=== PATIENT | female | born 1990 | race Asian ===

== ENCOUNTER → 2021-06-16 | Outpatient (REF) | LOC: M EMP 07:54 | PROVIDERS: ATTEND Family Medicine | DX: Z11.52 Encounter for screening for COVID-19 (principal) ==

== ENCOUNTER → 2021-06-20 | Outpatient (REF) | LOC: M EMP 10:11 | PROVIDERS: ATTEND Family Medicine | DX: Z20.822 Contact with and (suspected) exposure to COVID-19 (principal) ==

== ENCOUNTER 2021-12-21 15:50 | Emergency (ER) | payer BC ==
[~2021-12-21] VITALS: Ht 160 cm; Wt 67.9 kg
[2021-12-21] MEDS ORDERED: IVIG SQ (16:07)
[2021-12-21] MEDS ORDERED: PROB250C PO (16:08)
[2021-12-21] MEDS ORDERED: D3 +TAB PO (16:08)
[2021-12-21] MEDS ORDERED: VITMTA PO (16:08)
[2021-12-21] MEDS ORDERED: EQL50TAB2 PO (16:08)
[2021-12-21 17:44] LABS: BASO # 0.1 10^3/uL (0.0-0.2); EOS # 0.1 10^3/uL (0.0-0.5); EOS % 1.7 % (0.0-3.0); HEMATOCRIT 39.2 % (36.0-47.0); HEMOGLOBIN 12.9 g/dl (12.0-15.5); LYMPH # 2.1 10^3/uL (1.5-5.0); LYMPH % 25.9 % (24.0-44.0); MEAN CORPUSCULAR HEMOGLOBIN 29.6 pg (27.0-33.0); MEAN CORPUSCULAR HGB CONC 32.9 g/dl (32.0-36.5); MEAN CORPUSCULAR VOLUME 89.9 fl (80.0-96.0); MONO # 0.4 10^3/uL (0.0-0.8); MONO % 5.1 % (2.0-8.0); NEUTROPHILS # 5.4 10^3/uL (1.5-8.5); NEUTROPHILS % 66.1 % (36.0-66.0); PLATELET COUNT, AUTOMATED 296 10^3/uL (150-450); RED BLOOD COUNT 4.36 10^6/uL (4.00-5.40); WHITE BLOOD COUNT 8.2 10^3/uL (4.0-10.0)
[2021-12-21 18:12] LABS: C REACTIVE PROTEIN QUANTITATIV 0.86 MG/DL (0.00-0.30)
[2021-12-21 18:30] LABS: ERYTHROCYTE SEDIMENTATION RATE 50 mm/hr (0-20)
[2021-12-21 20:31] LABS: FREE THYROXINE INDEX 2.7 % (1.3-4.8); THYROID STIMULATING HORMONE 0.926 uIU/ML (0.358-3.740); THYROXINE (T4) 8.3 UG/DL (4.5-12.0)
[2021-12-21 20:32] VITALS: BP 107/67
== END 2021-12-21 20:48 | disposition home or self-care (01) ==
LOC: M ED 15:50
DX: H53.2 Diplopia (principal); Z91.018 Allergy to other foods; Z79.899 Other long term (current) drug therapy

== ENCOUNTER → 2022-01-05 | Outpatient (CLI) | payer BC ==
[~2022-01-05] MED LIST: D3 +TAB PO; EQL50TAB2 PO; IVIG SQ; PROB250C PO; VITMTA PO
[2022-01-05 15:46] LABS: FREE T4 1.22 NG/DL (0.76-1.46); THYROID STIMULATING HORMONE 0.898 uIU/ML (0.358-3.740)
[2022-01-05 15:52] LABS: THYROGLOBULIN ANTIBODY 35.9 U/ML (<60.0); THYROID PEROXIDASE ANTIBODY 154.3 U/ML (<60.0)
== END ==
LOC: M PLALAB 12:39
PROVIDERS: ATTEND Student in an Organized Health Care Education/Training Program
DX: R94.6 Abnormal results of thyroid function studies (principal)

== ENCOUNTER → 2023-05-15 | Outpatient (REF) | payer BC | LOC: M SFHCPLAZ 15:27 | PROVIDERS: ATTEND Student in an Organized Health Care Education/Training Program | DX: R05.1 Acute cough (principal) ==

== ENCOUNTER → 2023-09-07 | Outpatient (REF) ==
[2023-09-07 11:22] LABS: RSV AMPLIFICATION NEGATIVE (NEGATIVE)
== END ==
LOC: M EMP 09:45
PROVIDERS: ATTEND Family Medicine
DX: Z01.89 Encounter for other specified special examinations (principal)

== ENCOUNTER → 2023-10-23 | Outpatient (REF) | LOC: M EMP 07:28 | PROVIDERS: ATTEND Family Medicine | DX: Z11.52 Encounter for screening for COVID-19 (principal) ==

== ENCOUNTER → 2024-09-17 | Outpatient (REF) | LOC: M EMP 09:00 | PROVIDERS: ATTEND Family Medicine | DX: Z11.52 Encounter for screening for COVID-19 (principal); Z20.822 Contact with and (suspected) exposure to COVID-19 ==

== ENCOUNTER → 2024-10-10 | Outpatient (REF) | payer BC | LOC: M SFHCPLAZ 17:55 | DX: Z11.1 Encounter for screening for respiratory tuberculosis (principal); Z53.9 Procedure and treatment not carried out, unspecified reason ==

== ENCOUNTER → 2024-10-16 | Outpatient (REF) | payer BC | LOC: M SFHCPLAZ 12:54 | DX: Z02.1 Encounter for pre-employment examination (principal); Z11.1 Encounter for screening for respiratory tuberculosis ==

== ENCOUNTER → 2024-10-31 | Outpatient (REF) | payer BC | LOC: M SFHCPLAZ 19:00 | DX: Z53.9 Procedure and treatment not carried out, unspecified reason (principal) ==

== ENCOUNTER → 2025-04-08 | Outpatient (REF) ==
[~2025-04-08] MED LIST changes: -EQL50TAB2 PO; +VITA1TAB82 PO
[2025-04-08 08:45] LABS: SOFIA COVID ANTIGEN NEGATIVE (NEGATIVE)
== END ==
LOC: M EMP 08:26
PROVIDERS: ATTEND Family Medicine
DX: Z11.52 Encounter for screening for COVID-19 (principal)